=== PATIENT | female | born 1940 | race Caucasian/White ===

== ENCOUNTER 2017-10-24 05:38 | Day surgery (SDC) | payer OTHER ==
[~2017-10-24 05:38] MED LIST: COZAAR PO; Coreg PO; ISORDIL10 MG PO; MICRO-K8 MEQ PO; RAYOS5 MG PO
== END 2017-10-24 10:40 | disposition home or self-care (01) ==
LOC: AMB-ENDOS 05:38
DX: D12.6 Benign neoplasm of colon, unspecified (principal); K57.30 Diverticulosis of large intestine without perforation or abscess without bleeding; K64.1 Second degree hemorrhoids; M06.89 Other specified rheumatoid arthritis, multiple sites; M81.0 Age-related osteoporosis without current pathological fracture; R68.2 Dry mouth, unspecified; Z79.52 Long term (current) use of systemic steroids; R09.02 Hypoxemia; I11.0 Hypertensive heart disease with heart failure; I50.30 Unspecified diastolic (congestive) heart failure